=== PATIENT | female | born 1995 | race African-American/Black ===

== ENCOUNTER 2024-07-18 21:30 | Inpatient (IN) | payer MEDICAID ==
[~2024-07-18] VITALS: Ht 162.6 cm; Wt 86.5 kg
--- NOTE | 2024-07-18 23:32 | DVH ---
US OF THE LEFT BREAST INDICATION: abscess TECHNIQUE: Focused grayscale and color flow evaluation of the left breast and axilla. COMPARISON: None available. Findings and impression: Heterogeneous collection in the upper-outer quadrant of the left breast measuring approximately 7 cm in diameter. Surrounding subcutaneous edema. No internal blood flow. Differential diagnosis includes abscess as well as hematoma. Recommend further workup and close follow-up to resolution to exclude any associated neoplastic nicholas denise
--- NOTE | 2024-07-18 23:38 | ED.PDOC ---
History of Present Illness HPI Comments 28 y/o F presents with 3 month history of left breast pain and swelling. Patient endorses on history of abscess to her left-breast, which she had aspirated on June 22, 2024 by her PCP. She states on having, approximately, 80ml of fluid pulled from aspiration procedure and symptoms worsening since then. Next f/u appointment with PCP is next week. Reports being unable to tolerate symptoms any further. Denies any numbness, tingling, redness, fever, chills, or further associated symptoms at this time. 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 TOYS History Family History Family History: Unknown Social History Smoker: Non-Smoker Alcohol: Occasionally Drugs: Marijuana Lives In: Home All Other Systems: Reviewed and Negative (Comprehensive systems review obtained and negative except for what is stated in the HPI.) Physical Exam General Appearance: No Apparent Distress, Obese HEENT: Normal ENT Inspection, Pharynx Normal, TMs Normal Neck: Full Range of Motion, Non-Tender, Normal, Normal Inspection Respiratory: Chest Non-Tender, Lungs Clear, No Accessory Muscle Use, No Respiratory Distress, Normal Breath Sounds Cardiovascular: No Edema, No JVD, No Murmur, No Gallop, Normal Peripheral Pulses, Regular Rate/Rhythm Breast Exam: Deferred Gastrointestinal: No Organomegaly, Non Tender, No Pulsatile Mass, Normal Bowel Sounds, Soft Genitalia: Deferred Pelvic: Deferred Rectal: Deferred Extremities: No calf tenderness, Normal capillary refill, Normal inspection, Normal range of motion, Non-tender, No pedal edema Musculoskeletal : Location: Left Extremity Location: Other (breast) Apperance: Swelling, Tenderness, Other (firm to touch) Neurologic: Alert, cleaner furniture II-XII nml as Tested, No Motor Deficits, Normal Affect, Normal Mood, No Sensory Deficits Cerebellar Function: Normal Reflexes: Normal Skin: Dry, Normal Color, Warm Lymphatic: No Adenopathy Was a procedure done? Was a procedure done?: No Differential Dx Considerations may include: abscess, cellulitis, dermatitis, secondary infection s/p abscess aspiration X-Ray, Labs, Meds, VS Vital Signs Date Time Temp Pulse Resp B/P (MAP) Pulse Ox O2 Delivery O2 Flow Rate FiO2 07/19/24 00:15 107 19 134/78 07/19/24 00:05 101.0 109 18 134/78 (96) 100 101.0 07/18/24 23:30 112 20 100 Room Air 07/18/24 23:30 101.3 112 20 142/83 (102) 100 101.3 07/18/24 21:40 99.0 126 18 135/59 (84) 98 99.0 Lab Test 07/18/24 23:57 Range/Units White Blood Count 9.4 4.4-10.8 10^3/uL Red Blood Count 4.07 4.0-5.20 10^6/uL Hemoglobin 11.7 L 12.2-16.2 g/dL Hematocrit 35.4 L 36.0-46.0 % Mean Corpuscular Volume 87.0 80.0-100.0 fL Mean Corpuscular Hemoglobin 28.8 28.0-32.0 pg Mean Corpuscular Hemoglobin Concent 33.1 32.0-36.0 g/dL Red Cell Distribution Width 14.0 11.8-14.3 % Platelet Count 347 140-450 10^3/uL Mean Platelet Volume 8.3 6.9-10.8 fL Neutrophils (%) (Auto) 60.5 37.0-80.0 % Lymphocytes (%) (Auto) 27.5 10.0-50.0 % Monocytes (%) (Auto) 10.3 0.0-12.0 % Eosinophils (%) (Auto) 1.1 0.0-7.0 % Basophils (%) (Auto) 0.6 0.0-2.0 % Neutrophils # (Auto) 5.7 1.6-8.6 10 ^3/uL Lymphocytes # (Auto) 2.6 0.4-5.4 10 ^3/uL Monocytes # (Auto) 1.0 0-1.3 10 ^3/uL Eosinophils # (Auto) 0.1 0-0.8 10 ^3/uL Basophils # (Auto) 0.1 0-0.2 10 ^3/uL Nucleated Red Blood Cells 0.1 % Sodium Level 132 L 136-145 mmol/L Potassium Level 3.6 3.5-5.1 mmol/L Chloride Level 98 98-107 mmol/L Carbon Dioxide Level 23 20-31 mmol/L Anion Gap 11 5-15 Blood Urea Nitrogen < 5 L 9-23 mg/dL Creatinine 0.86 0.550-1.02 mg/dL Glomerular Filtration Rate Calc 94 >90 mL/min BUN/Creatinine Ratio 5.8 L 10.0-20.0 Serum Glucose 356 H 74-106 mg/dL Lactic Acid Level 3.1 *H 0.4-2.0 mmol/L Calcium Level 9.5 8.7-10.4 mg/dL Total Bilirubin 0.8 0.2-1.0 mg/dL Aspartate Amino Transferase (AST) 11 L 13-40 U/L Alanine Aminotransferase (ALT) 14 7-40 U/L Alkaline Phosphatase 92 46-116 U/L Total Protein 8.0 5.7-8.2 g/dL Albumin 4.8 3.2-4.8 g/dL Current Medications Medications (Trade) Dose Ordered Sig/Costa Route Start Time Stop Time Status Last Admin Sodium Chloride 1,000 ml @ 1,000 mls/hr Q1H ONCE IV 07/18/24 23:45 07/19/24 00:44 DC 07/18/24 23:58 Piperacillin Sod/ Tazobactam Sod 100 ml @ 100 mls/hr ONCE ONCE IV 07/18/24 23:45 07/19/24 00:44 DC 07/18/24 23:58 Hydromorphone HCl (Dilaudid Injection) 0.5 mg ONCE ONCE IV 07/19/24 00:15 07/19/24 00:16 DC 07/19/24 00:15 Ondansetron HCl (Zofran) 4 mg ONCE ONCE IV 07/19/24 00:15 07/19/24 00:16 DC 07/19/24 00:[address] [address] Ph: [phone] DIAGNOSTIC IMAGING Diagnostic Imaging Report : [id number] Signed PATIENT: ANDREA POTTS ACCT: [id number] UNIT: [id number] : 1995 LOC: ER ROOM / BED: / AGE / SEX: 28 / F ADM STATUS: REG ER SERVICE 46 ORDERING PHYSICIAN: MEKHI PIERCE PROCEDURE(s): LBRST - L BREAST ULTRASOUND REASON: abscess ORDER NUMBER(s): [id number], ACCESSION NUMBER(s): [id number] US OF THE LEFT BREAST INDICATION: abscess TECHNIQUE: Focused grayscale and color flow evaluation of the left breast and axilla. COMPARISON: None available. Findings and impression: Heterogeneous collection in the upper-outer quadrant of the left breast measuring approximately 7 cm in diameter. Surrounding subcutaneous edema. No internal blood flow. Differential diagnosis includes abscess as well as hematoma. Recommend further workup and close follow-up to resolution to exclude any associated neoplastic lesion. ATED BY: RORY ALVA MD DICTATED DATE/TIME: 07/18/242328 SIGNED BY: RORY ALVA MD SIGNED DATE/TIME: 07/18/242328 CC: X-Ray, Labs, Meds, VS Comment Imaging: X-rays and CT scans were reviewed and interpreted by this provider, imaging shows no fractures and no pathological disease. Pending radiology review. Ultrasound of the left breast shows large abscess Laboratory: Labs reviewed and interpreted by this provider. Patient has prior medical visits reviewed. Med reconciliation performed Vital signs reviewed Patient's she was signs of sepsis. Elevated lactic acid. Patient will be admitted for septicemia and abscess of the last breast. Patient was started on vancomycin and Zosyn Recommend surgical consult in the morning Time of 1ST Reevaluation: 22:15 Reevaluation 1ST: Unchanged Patient Education/Counseling: Diagnosis, Treatment, Need For Follow Up Family Education/Counseling: No Family Present Departure 1 Departure Time of Disposition: 00:59 Impression: Primary Impression: Abscess Additional Impression: Elevated lactic acid level Disposition: ADMITTED INPATIENT Condition: Stable Critical Care Note Critical Care Time?: No Stability Stability form required: No Heart Score Heart Score: Heart Score Response (Comments) Value History N/A 0 EKG N/A 0 Age N/A 0 Risk Factors N/A 0 Troponin N/A 0 Total 0 I personally scribed for MEKHI PIERCE ([email or web address]) on 07/18/24 at 23:38. Electronically submitted by Dayton [email or web address]). I personally scribed for MEKHI PIERCE ([email or web address]) on 07/18/24 at 23:41. Electronically submitted by Dayton Rooney [email or web address]). MEKHI PIERCE July 18, 2024 23:38
[2024-07-18] MEDS: PIPERACILLIN-TAZOB 3.375GM 100 ML IV ONE (23:58)
[2024-07-18] MEDS: SODIUM CHLORIDE 0.9% 1,000 ML IV ONE (23:58)
[2024-07-19] VITALS (9 sets, daily range): BP systolic 109–123; BP diastolic 55–77; PULSE 70–104; RESP 12–18; TEMP 98.4–100.4; O2SAT 98–100
[2024-07-19] MEDS: ONDANSETRON HCL 4 MG/2 ML VIAL IV ONE (00:14)
[2024-07-19] MEDS: HYDROmorphone HCL 2 MG/ML VL/or syr IV ONE (00:15)
[2024-07-19 00:23] LABS: Basophils # (auto) 0.1 10 ^3/uL (0-0.2); Basophils % (auto) 0.6 % (0.0-2.0); Eosinophils # (auto) 0.1 10 ^3/uL (0-0.8); Eosinophils % (auto) 1.1 % (0.0-7.0); Hematocrit 35.4 % (36.0-46.0); Hemoglobin 11.7 g/dL (12.2-16.2); Lymphocytes # (auto) 2.6 10 ^3/uL (0.4-5.4); Lymphocytes % (auto) 27.5 % (10.0-50.0); Mean Corpuscular Hemoglobin 28.8 pg (28.0-32.0); Mean Corpuscular Hgb Conc. 33.1 g/dL (32.0-36.0); Monocytes % (auto) 10.3 % (0.0-12.0); Neutrophils # (auto) 5.7 10 ^3/uL (1.6-8.6); Neutrophils % (auto) 60.5 % (37.0-80.0); Nucleated Red Blood Cells % 0.1 %; Platelet Count (auto) 347 10^3/uL (140-450); Red Blood Cells 4.07 10^6/uL (4.0-5.20); White Blood Cell 9.4 10^3/uL (4.4-10.8)
[2024-07-19 00:27] LABS: Alanine Aminotransferase 14 U/L (7-40); Albumin 4.8 g/dL (3.2-4.8); Alkaline Phosphatase 92 U/L (46-116); Anion Gap 11 (5-15); Calcium 9.5 mg/dL (8.7-10.4); Carbon Dioxide 23 mmol/L (20-31); Chloride 98 mmol/L (98-107); Potassium 3.6 mmol/L (3.5-5.1)
[2024-07-19 00:28] LABS: Bilirubin, Total 0.8 mg/dL (0.2-1.0)
[2024-07-19 00:29] LABS: Lactic Acid w/Reflex 3.1 mmol/L (0.4-2.0)
[2024-07-19 00:30] LABS: Aspartate Aminotransferase 11 U/L (13-40); BUN/Creatinine Ratio 5.8 (10.0-20.0); Blood Urea Nitrogen < 5 mg/dL (9-23); Glucose 356 mg/dL (74-106); Sodium 132 mmol/L (136-145)
[2024-07-19] MEDS: VANCOMYCIN 1GM/200ML PM 200 ML IV ONE (00:56)
[2024-07-19] MEDS: SODIUM CHLORIDE 0.9% 1,000 ML IV ONE (01:00)
[2024-07-19] MEDS ORDERED: VANCOMYCIN PER PHARMACY 0 MG IV SCH (02:00)
[2024-07-19] MEDS: SODIUM CHLORIDE 0.9% 1,000 ML IV SCH (02:10)
[2024-07-19 02:51] LABS: Urine Bacteria FEW /hpf (None Seen); Urine Blood 3+ /uL (Negative); Urine Clarity Clear (Clear); Urine Color Colorless (Yellow); Urine Protein, UAD TRACE (Negative); Urine Specific Gravity 1.019 (1.001-1.035); Urine Squamous Epithelial Cell FEW /hpf (<5); Urine Urobilinogen Normal (Negative); Urine WBC 2 /HPF (0-5); Urine pH 5.5 (5.0-9.0)
--- NOTE | 2024-07-19 04:29 | DVHHP2 ---
History of Present Illness Reason for Visit: breast abcess History of Present Illness 28-year-old female presents with a 3-month history of left breast pain and swelling, progressively worsening over the past few weeks. She reports that symptoms began after piercing her nipples, which she associates with the onset of recurrent issues. On June 22, 2024, her PCP aspirated approximately 80 mL of purulent fluid from the area. Despite initial improvement, she now reports increased tenderness and swelling, redness localized to the lower quadrants of the breast, and yellowish discharge near the nipple. She denies numbness, tingling, fevers, chills, or systemic symptoms. Her follow-up with PCP is scheduled for next week, but she presents today due to worsening symptoms and inability to tolerate the discomfort. 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 Differential includes abscess vs. hematoma. Further workup recommended to exclude neoplastic lesion. Review of Systems Review of Systems see HPI Allergies: Coded Allergies: NO KNOWN ALLERGIES (Unverified , 03/21/14) Medications Current Medications Medications Dose Ordered Sig/Costa Route Start Time Stop Time Status Last Admin Dose Admin Sodium Chloride 1,000 ml @ 100 mls/hr Q10H IV 07/19/24 02:00 07/19/24 02:10 100 MLS/HR Acetaminophen 650 mg Q6HP PRN PO 07/19/24 02:00 Enoxaparin Sodium 40 mg DAILY SC 07/19/24 10:00 Piperacillin Sod/ Tazobactam Sod 100 ml @ 25 mls/hr Q6HR IV 07/19/24 06:00 UNV Vancomycin HCl 0 ml @ 0 mls/hr UD IV 07/19/24 02:00 UNV Exam Vital Signs Vital Signs Date Time Temp Pulse Resp B/P (MAP) Pulse Ox O2 Delivery O2 Flow Rate FiO2 07/19/24 03:43 99.0 97 21 109/68 (82) 97 99.0 07/19/24 00:05 Room Air* 0 21 Exam Left breast with erythema and tenderness localized to the lower quadrants, visible nipple discharge. General Appearance: Alert, Oriented X3 HEENT: Atraumatic, PERRLA Respiratory: Clear to auscultation Cardiovascular: Regular rate, Normal S1 Abdominal: Normal bowel sounds, Soft Extremities: No clubbing, No cyanosis Skin: No rashes, No breakdown Neuro: Normal gait, Normal speech Psych/Mental Status: Mental status NL Labs/Xrays Labs Test 07/19/24 02:36 07/19/24 01:51 07/18/24 23:57 Range/Units Urine Color Colorless Yellow Urine Clarity Clear Clear Urine pH 5.5 5.0-9.0 Urine Specific [place] 1.019 1.001-1.035 Urine Protein Trace H Negative Urine Ketones Trace Negative Urine Blood 3+ H Negative /uL Urine Nitrite Negative Negative Urine Bilirubin Negative Negative Urine Urobilinogen Normal Negative mg/dL Urine Leukocyte Esterase Negative Negative /uL Urine RBC 213 0 - 4 /hpf Urine Microscopic WBC 2 0-5 /HPF Urine Squamous Epithelial Cells Few <5 /hpf Urine Bacteria Few H None Seen /hpf Urine Glucose 4+ H Normal mg/dL Lactic Acid Level 1.2 0.4-2.0 mmol/L White Blood Count 9.4 4.4-10.8 10^3/uL Red Blood Count 4.07 4.0-5.20 10^6/uL Hemoglobin 11.7 L 12.2-16.2 g/dL Hematocrit 35.4 L 36.0-46.0 % Mean Corpuscular Volume 87.0 80.0-100.0 fL Mean Corpuscular Hemoglobin 28.8 28.0-32.0 pg Mean Corpuscular Hemoglobin Concent 33.1 32.0-36.0 g/dL Red Cell Distribution Width 14.0 11.8-14.3 % Platelet Count 347 140-450 10^3/uL Mean Platelet Volume 8.3 6.9-10.8 fL Neutrophils (%) (Auto) 60.5 37.0-80.0 % Lymphocytes (%) (Auto) 27.5 10.0-50.0 % Monocytes (%) (Auto) 10.3 0.0-12.0 % Eosinophils (%) (Auto) 1.1 0.0-7.0 % Basophils (%) (Auto) 0.6 0.0-2.0 % Neutrophils # (Auto) 5.7 1.6-8.6 10 ^3/uL Lymphocytes # (Auto) 2.6 0.4-5.4 10 ^3/uL Monocytes # (Auto) 1.0 0-1.3 10 ^3/uL Eosinophils # (Auto) 0.1 0-0.8 10 ^3/uL Basophils # (Auto) 0.1 0-0.2 10 ^3/uL Nucleated Red Blood Cells 0.1 % Sodium Level 132 L 136-145 mmol/L Potassium Level 3.6 3.5-5.1 mmol/L Chloride Level 98 98-107 mmol/L Carbon Dioxide Level 23 20-31 mmol/L Anion Gap 11 5-15 Blood Urea Nitrogen < 5 L 9-23 mg/dL Creatinine 0.86 0.550-1.02 mg/dL Glomerular Filtration Rate Calc 94 >90 mL/min BUN/Creatinine Ratio 5.8 L 10.0-20.0 Serum Glucose 356 H 74-106 mg/dL Calcium Level 9.5 8.7-10.4 mg/dL Total Bilirubin 0.8 0.2-1.0 mg/dL Aspartate Amino Transferase (AST) 11 L 13-40 U/L Alanine Aminotransferase (ALT) 14 7-40 U/L Alkaline Phosphatase 92 46-116 U/L Total Protein 8.0 5.7-8.2 g/dL Albumin 4.8 3.2-4.8 g/dL Assessment/Plan Assessment/Plan #Sepsis? #Recurrent left abcess #Mastitis Admit Regular diet Zosyn + Vancomycin IV fluids Need of drainage Pain medication Case discussed with Dr Cano Full code Plan discussed with: Patient, Other (rn) My Orders Orders - RUTHY JONES RESIDENT Procedure Category Date Status Time Admit ADMIT 07/19/24 Transmitted 01:58 Code Status CODE 07/19/24 Transmitted 01:58 Vital Signs [facility] 07/19/24 In Process 01:58 Review Orders With MAGY 07/19/24 In Process Adm. 01:58 Sodium Chloride 0.9% PHA 07/19/24 In Process 02:00 Acetaminophen Tablet PHA 07/19/24 In Process (Tylenol Tablet) 02:00 Notify Of Changes [facility] 07/19/24 In Process From Base 01:58 Advance Directive MAGY 07/19/24 In Process 01:58 Patient Condition ORDERS 07/19/24 Transmitted 01:58 Allergies MAGY 07/19/24 In Process 01:58 Enoxaparin Sodium PHA 07/19/24 In Process (Lovenox) 10:00 Piperacillin-Tazob PHA 07/19/24 Pending 3.375gm (Zosyn 3.375g 06:00 Vancomycin Per PHA 07/19/24 Pending Pharmacy 02:00 Wound Culture W/ Gs JOSSELINE 07/19/24 In Process 02:07 * Radiologist Consult CONS 07/19/24 Transmitted 02:07 Complete Blood Count LAB 07/19/24 Logged 04:05 Comprehensive LAB 07/19/24 Logged Metabolic Panel 04:05 Thyroid Stimulating LAB 07/19/24 Logged Hormone 04:05 Date of Service: July 19, 2024 Billing Provider: JESSICA CANO MD Common Visit Codes: [id number] INP/OBS CARE (HIGH) Secondary Visit Codes: [id number] CARE PLAN 30 MINUTES RUTHY JONES RESIDENT July 19, 2024 04:29
[2024-07-19] MEDS: PIPERACILLIN-TAZOB 3.375GM 100 ML IV SCH (06:00)
[2024-07-19 09:44] LABS: Basophils # (auto) 0 10 ^3/uL (0-0.2); Basophils % (auto) 0.4 % (0.0-2.0); Eosinophils # (auto) 0.1 10 ^3/uL (0-0.8); Eosinophils % (auto) 1.2 % (0.0-7.0); Hematocrit 31.9 % (36.0-46.0); Hemoglobin 10.6 g/dL (12.2-16.2); Lymphocytes # (auto) 1.5 10 ^3/uL (0.4-5.4); Lymphocytes % (auto) 19.9 % (10.0-50.0); Mean Corpuscular Hemoglobin 28.8 pg (28.0-32.0); Mean Corpuscular Hgb Conc. 33.3 g/dL (32.0-36.0); Mean Corpuscular Volume 86.6 fL (80.0-100.0); Monocytes # (auto) 0.7 10 ^3/uL (0-1.3); Neutrophils % (auto) 68.5 % (37.0-80.0); Platelet Count (auto) 283 10^3/uL (140-450); Red Blood Cells 3.68 10^6/uL (4.0-5.20); Red Cell Distribution Width 13.9 % (11.8-14.3); White Blood Cell 7.3 10^3/uL (4.4-10.8)
[2024-07-19 09:59] LABS: Alanine Aminotransferase 15 U/L (7-40); Albumin 3.7 g/dL (3.2-4.8); Alkaline Phosphatase 79 U/L (46-116); Anion Gap 6 (5-15); Aspartate Aminotransferase 14 U/L (13-40); BUN/Creatinine Ratio 6.4 (10.0-20.0); Calcium 8.8 mg/dL (8.7-10.4); Carbon Dioxide 24 mmol/L (20-31); Chloride 104 mmol/L (98-107); Total Protein 6.4 g/dL (5.7-8.2)
[2024-07-19 10:00] LABS: Blood Urea Nitrogen 5 mg/dL (9-23); Glucose 399 mg/dL (74-106); Sodium 134 mmol/L (136-145)
[2024-07-19] MEDS: ENOXAPARIN SOD 40 MG/0.4 ML SYRINGE SC SCH (10:03)
[2024-07-19] MEDS: ACETAMINOPHEN 325 MG TAB PO PRN (10:03)
[2024-07-19] MEDS: SODIUM CHLORIDE 0.9% 500 ML IV ONE (10:09)
[2024-07-19] MEDS: VANCOMYCIN 750mg/150ml 150 ML IV SCH (11:28)
--- NOTE | 2024-07-19 11:58 | DVHINCON2 ---
Date of service: July 19, 2024 History of Present Illness 23-year-old female complaining of two month history of painful left breast swelling. Patient had an aspiration by her primary care doctor placed on antibiotics but the swelling recurred. Past Medical History None Past Surgical History Three C-sections Family History: Patient reports no known family medical history. Family History Noncontributory Social History Reports marijuana use. Occasional alcohol use. Denies any IV drug use Allergies: Coded Allergies: NO KNOWN ALLERGIES (Unverified , 03/21/14) Current Medications Current Medications Medications (Trade) Dose Ordered Sig/Costa Route PRN Reason Start Time Stop Time Status Last Admin Sodium Chloride 1,000 ml @ 100 mls/hr Q10H IV 07/19/24 02:00 07/19/24 11:31 Acetaminophen (Tylenol Tablet) 650 mg Q6HP PRN PO PAIN SCALE 1-3 OR TEMP>100.4 07/19/24 02:00 07/19/24 10:03 Enoxaparin Sodium (Lovenox) 40 mg DAILY SC 07/19/24 10:00 07/19/24 10:03 Piperacillin Sod/ Tazobactam Sod 100 ml @ 25 mls/hr Q6HR IV 07/19/24 06:00 Vancomycin HCl 0 ml @ 0 mls/hr UD IV 07/19/24 02:00 Vancomycin HCl 150 ml @ 150 mls/hr Q8H IV 07/19/24 10:00 07/19/24 11:28 Vital Signs Vital Signs Date Time Temp Pulse Resp B/P (MAP) Pulse Ox O2 Delivery O2 Flow Rate FiO2 07/19/24 08:54 100.4 97 15 114/74 (87) 100 100.4 07/19/24 08:00 Room Air* 0 21 Physical Exam GEN: Age-appropriate female in no acute distress. Alert. HEENT: Normocephalic atraumatic. Moist mucous membranes. Anicteric sclerae. CV: RRR Respiratory: CTAB ABD: Soft. Nontender nondistended Breast. There is a significant diffuse induration of the left breast with tenderness to palpation. Left breast ultrasound: Heterogeneous collection in the upper outer quadrant of the left breast measuring approximately 7 cm in diameter with surrounding subcutaneous edema. Possible abscess versus hematoma. Labs/Diagnostic Data Labs Test 07/19/24 09:14 07/19/24 02:36 07/19/24 01:51 Range/Units White Blood Count 7.3 4.4-10.8 10^3/uL Red Blood Count 3.68 L 4.0-5.20 10^6/uL Hemoglobin 10.6 L 12.2-16.2 g/dL Hematocrit 31.9 L 36.0-46.0 % Mean Corpuscular Volume 86.6 80.0-100.0 fL Mean Corpuscular Hemoglobin 28.8 28.0-32.0 pg Mean Corpuscular Hemoglobin Concent 33.3 32.0-36.0 g/dL Red Cell Distribution Width 13.9 11.8-14.3 % Platelet Count 283 140-450 10^3/uL Mean Platelet Volume 8.4 6.9-10.8 fL Neutrophils (%) (Auto) 68.5 37.0-80.0 % Lymphocytes (%) (Auto) 19.9 10.0-50.0 % Monocytes (%) (Auto) 10.0 0.0-12.0 % Eosinophils (%) (Auto) 1.2 0.0-7.0 % Basophils (%) (Auto) 0.4 0.0-2.0 % Neutrophils # (Auto) 5.0 1.6-8.6 10 ^3/uL Lymphocytes # (Auto) 1.5 0.4-5.4 10 ^3/uL Monocytes # (Auto) 0.7 0-1.3 10 ^3/uL Eosinophils # (Auto) 0.1 0-0.8 10 ^3/uL Basophils # (Auto) 0 0-0.2 10 ^3/uL Nucleated Red Blood Cells 0.0 % Sodium Level 134 L 136-145 mmol/L Potassium Level 4.0 3.5-5.1 mmol/L Chloride Level 104 98-107 mmol/L Carbon Dioxide Level 24 20-31 mmol/L Anion Gap 6 5-15 Blood Urea Nitrogen 5 L 9-23 mg/dL Creatinine 0.78 0.550-1.02 mg/dL Glomerular Filtration Rate Calc 106 >90 mL/min BUN/Creatinine Ratio 6.4 L 10.0-20.0 Serum Glucose 399 H 74-106 mg/dL Calcium Level 8.8 8.7-10.4 mg/dL Total Bilirubin 1.0 0.2-1.0 mg/dL Aspartate Amino Transferase (AST) 14 13-40 U/L Alanine Aminotransferase (ALT) 15 7-40 U/L Alkaline Phosphatase 79 46-116 U/L Total Protein 6.4 5.7-8.2 g/dL Albumin 3.7 3.2-4.8 g/dL Thyroid Stimulating Hormone (TSH) 1.75 0.55-4.78 uIU/mL Urine Color Colorless Yellow Urine Clarity Clear Clear Urine pH 5.5 5.0-9.0 Urine Specific [place] 1.019 1.001-1.035 Urine Protein Trace H Negative Urine Ketones Trace Negative Urine Blood 3+ H Negative /uL Urine Nitrite Negative Negative Urine Bilirubin Negative Negative Urine Urobilinogen Normal Negative mg/dL Urine Leukocyte Esterase Negative Negative /uL Urine RBC 213 0 - 4 /hpf Urine Microscopic WBC 2 0-5 /HPF Urine Squamous Epithelial Cells Few <5 /hpf Urine Bacteria Few H None Seen /hpf Urine Glucose 4+ H Normal mg/dL Lactic Acid Level 1.2 0.4-2.0 mmol/L Assessment 1. Large left breast abscess Plan/Recommendation 1. We will request IR evaluation for possible percutaneous aspiration/drainage. Plan discussed with: Patient TIFFANIE HAMILTON MD July 19, 2024 11:58
[2024-07-19] MEDS: fentaNYL CITRATE 100 MCG/2 ML VL IV ONE (12:30)
[2024-07-19] MEDS: MIDAZOLAM HCL 2MG/2ML 2ml VIAL (1mg/ml) IV ONE (12:30)
[2024-07-19] MEDS: fentaNYL CITRATE 100 MCG/2 ML VL ONE (12:31)
[2024-07-19] MEDS: MIDAZOLAM HCL 2MG/2ML 2ml VIAL (1mg/ml) ONE (12:31)
[2024-07-19 12:47] LABS: Partial Thromboplastin Time 26.9 SEC (24.5-34.5); Prothrombin Time 10.6 sec (9.3-11.8)
--- NOTE | 2024-07-19 13:04 | DVHPNRES ---
Progress Note Date Seen: July 19, 2024 Resident Creating Document: NAOMY MOYA RESIDENT Medical Necessity Reason Pt with a Central, PICC or Fol: No Subjective Review of Systems Patient is a 28-year-old female with no significant past medical history presented to the ED with a chief complaint of left breast swelling for the last 2 months. Patient reported that in May she started to have swelling in his left breast with the associated pain, no currently, patient had nipple piercings done about 2 years ago. Patient reported that at the [facility] she got the breast abscess drained in the end of June and about 88 CC of fluid was removed and the patient was given ciprofloxacin. She reported no relief from the symptoms and her abscess kept getting bigger and the breast more painful following which she came to the ER for further evaluation. Patient reported feeling feverish at home but denied chills, shortness of breath, chest pain, abdominal pain, nausea or vomiting. Past medical history: None Past surgical history: 3 C sections Gynecological history: Patient has 3 live children, no current Social history: Patient drinks alcohol occasionally, smokes weed occasionally, denies any other drug usage No home medications Review of systems Patient seen and examined with the bedside Reported of left breast pain and tenderness Denied headache, chills, abdominal pain, dysuria Objective vital signs Vital Sign Date Time Temp Pulse Resp B/P (MAP) Pulse Ox O2 Delivery O2 Flow Rate FiO2 07/19/24 12:29 100.2 104 16 112/59 (76) 98 100.2 07/19/24 08:00 Room Air* 0 21 Total Intake and Output 07/18/24 07/18/24 07/19/24 15:00 23:00 07:00 Intake Total 2700 ml Balance 2700 ml medications Current Medications Medications Dose Ordered Sig/Costa Route Start Time Stop Time Status Last Admin Dose Admin Sodium Chloride 1,000 ml @ 100 mls/hr Q10H IV 07/19/24 02:00 07/19/24 11:31 100 MLS/HR Acetaminophen 650 mg Q6HP PRN PO 07/19/24 02:00 07/19/24 10:03 650 MG Piperacillin Sod/ Tazobactam Sod 100 ml @ 25 mls/hr Q6HR IV 07/19/24 06:00 Vancomycin HCl 0 ml @ 0 mls/hr UD IV 07/19/24 02:00 Vancomycin HCl 150 ml @ 150 mls/hr Q8H IV 07/19/24 10:00 07/19/24 11:28 150 MLS/HR Examination Gen - no pallor, no icterus, no cyanosis, no clubbing, no LAD, no edema . Skin - Patients skin is warm and dry. HEENT - normocephalic, atraumatic, dry mucous membranes. Neck - full ROM, no LAD, no JVD Pulmonary - B/L equal breath sounds, no crackles , no wheezing, no stridor. cardiovascular - Regular S1,S2 heard. no murmurs heard. GI - soft, nontender abdomen. no hepatospleenomegaly. Bowel sounds normoactive Breast examination- left breast enlarged with tenderness to palpation diffusely, induration on the left upper and the lower quadrant with erythema Neurological - Patient is A/O X 3 . Bilateral upper extremity strength 5/5, bilateral lower extremity strength 5/5, no facial droop, normal speech, no tremor, no sensory deficiets. laboratory and microbiology Laboratory Tests 07/19/24 09:14 Test 07/19/24 09:14 Range/Units Serum Glucose 399 H 74-106 mg/dL Problem List/Assessment/Plan Problem List/Assessment/Plan Sepsis likely due to left breast abscess Left breast abscess , recurrent - left breast ultrasound shows heterogeneous collection in the upper outer quadrant of the left breast measuring approximately 7 cm in diameter, surrounding subcutaneous edema and no internal blood flow - interventional consulted for drainage of the abscess - surgery consulted--> recommended drainage by IR - IV antibiotics vancomycin and Zosyn - IV fluids - pain management ?Diabetes mellitus - glucosuria and elevated serum blood glucose - HbA1c pending Goals of care discussed with the patient for over 25 minutes. Full code Plan discussed with Dr. Alford Plan discussed with: Patient My Orders My Orders Orders - NAOMY MOYA RESIDENT Procedure Category Date Status Time Ultra Guided Abcess US 07/19/24 Logged Drainage 12:25 Date of Service: July 19, 2024 Billing Provider: SUZIE ALFORD MD Common Visit Codes: [id number] INP/OBS CARE(HIGH) NAOMY MOYA RESIDENT July 19, 2024 13:04 SUZIE ALFORD MD July 20, 2024 12:43
[2024-07-19] MEDS ORDERED: MORPHINE SULFATE INJ 2 MG/ml SYRG IV PRN (13:45)
--- NOTE | 2024-07-19 14:13 | DVH ---
US ULTRA GUIDED ABCESS DRAINAGE, HISTORY: BREAST ABCESS PROCEDURE: An informed consent was obtained. The patient was placed supine on the bed. IV sedation wa s administered. The suspicious breast abscess was localized with ultrasound and the overlying skin pr epped with chlorhexidine which was allowed to dry and draped in the usual sterile fashion. Time out w as performed and infiltrated with 1% Xylocaine. With US guidance, a 8 Micronesian multipurpose pigtail ca theter was placed into the collection using trocar technique. Approximately 120 cc of thick purulent fluid was aspirated. The drain was sutured at the skin surface and connected to suction drainage. No immediate complication was identified. Post procedure catherogram was obtained. SEDATION: Dr. Hortensia Chaidez was personally responsible for the administration of moderate sedation during the procedure performed, including the use of an independent trained observer who had no other duties during the procedure. The drugs utilized were IV fentanyl and versed (see nursing log for details). The total time of supervision by the attending physician was approximately 30 minutes. FINDINGS: Limited US scan of through the left breast demonstrates a fluid collection in the subcutan eous tissue. Collection appears complex. Post procedure scan shows pigtail drain within the collectio n , which is decreased in size. IMPRESSION: US guided placement of 8 [place] citizen pigtail drain into a left breast abscess with 120 mL purulent fluid r emoved. PLAN: Routine tube care.
[2024-07-19] MEDS: HYDROcodone-ACET 5/325MG TAB PO PRN (16:53)
[2024-07-19] MEDS ORDERED: DEXTROSE (50%) 50ML SYRG IV PRN (19:30)
[2024-07-19] MEDS: InsuLIN REG 1unit/0.01ml Soln (100units/ml) SC SCH (21:22)
[2024-07-19] MEDS: ACCU-CHEK COMFORT CURVE STRIP VI SCH (21:22)
[2024-07-19] MEDS: LACTATED RINGER'S 1,000 ML IV ONE (21:27)
[2024-07-20] VITALS (7 sets, daily range): BP systolic 100–118; BP diastolic 64–72; PULSE 83–96; RESP 17–19; TEMP 97.5–98.4; O2SAT 99–100
[2024-07-20 07:04] LABS: Chloride 106 mmol/L (98-107); Sodium 141 mmol/L (136-145)
[2024-07-20 07:05] LABS: Anion Gap 10 (5-15); Calcium 8.8 mg/dL (8.7-10.4); Carbon Dioxide 25 mmol/L (20-31)
[2024-07-20 07:06] LABS: Basophils # (auto) 0 10 ^3/uL (0-0.2); Basophils % (auto) 0.3 % (0.0-2.0); Eosinophils # (auto) 0.3 10 ^3/uL (0-0.8); Eosinophils % (auto) 4.5 % (0.0-7.0); Hemoglobin 10.2 g/dL (12.2-16.2); Lymphocytes # (auto) 1.6 10 ^3/uL (0.4-5.4); Lymphocytes % (auto) 25.9 % (10.0-50.0); Mean Corpuscular Hemoglobin 29.1 pg (28.0-32.0); Mean Corpuscular Volume 85.5 fL (80.0-100.0); Monocytes # (auto) 0.6 10 ^3/uL (0-1.3); Monocytes % (auto) 9.3 % (0.0-12.0); Neutrophils # (auto) 3.8 10 ^3/uL (1.6-8.6); Nucleated Red Blood Cells % 0.1 %; Platelet Count (auto) 307 10^3/uL (140-450); Red Blood Cells 3.51 10^6/uL (4.0-5.20); Red Cell Distribution Width 14.2 % (11.8-14.3); White Blood Cell 6.4 10^3/uL (4.4-10.8)
[2024-07-20 07:12] LABS: Blood Urea Nitrogen < 5 mg/dL (9-23); Glucose 136 mg/dL (74-106); Potassium 3.4 mmol/L (3.5-5.1)
[2024-07-20 08:27] LABS: BUN/Creatinine Ratio 8.6 (10.0-20.0)
[2024-07-20] MEDS: LACTATED RINGER'S 500 ML IV ONE (09:06)
--- NOTE | 2024-07-20 10:24 | DVHPN2 ---
Progress Note - Dictate Date Seen: July 20, 2024 Medical Necessity Reason Pt with a Central, PICC or Fol: No Subjective E: left breast IR drainage feels better. vital signs Vital Sign Date Time Temp Pulse Resp B/P (MAP) Pulse Ox O2 Delivery O2 Flow Rate FiO2 07/20/24 09:00 98.4 87 18 112/64 (80) 100 98.4 07/19/24 20:00 Room Air* 0 21 Total Intake and Output 07/19/24 07/19/24 07/20/24 15:00 23:00 07:00 Intake Total 1420 ml 1250 ml 1050 ml Output Total 25 ml Balance 1420 ml 1225 ml 1050 ml medications Current Medications Medications Dose Ordered Sig/Costa Route Start Time Stop Time Status Last Admin Dose Admin Acetaminophen 650 mg Q6HP PRN PO 07/19/24 02:00 07/20/24 02:55 650 MG Piperacillin Sod/ Tazobactam Sod 100 ml @ 25 mls/hr Q6HR IV 07/19/24 06:00 07/20/24 05:25 25 MLS/HR Vancomycin HCl 0 ml @ 0 mls/hr UD IV 07/19/24 02:00 Vancomycin HCl 150 ml @ 150 mls/hr Q8H IV 07/19/24 10:00 07/20/24 08:50 150 MLS/HR Acetaminophen/ Hydrocodone Bitart 1 tab Q4HPRN PRN PO 07/19/24 13:45 07/19/24 16:53 1 TAB Morphine Sulfate 2 mg Q6HPRN PRN IV 07/19/24 13:45 Diagnostic Test (Pha) 1 strip IQ4HR 07/19/24 20:00 07/20/24 08:04 1 STRIP Insulin Human Regular IQ4HR SC 07/19/24 20:00 07/20/24 08:04 2 UNITS Dextrose 50 ml UD PRN IV 07/19/24 19:30 objective GEN: NAD LEFT BREAST: drain intact laboratory and microbiology Laboratory Tests 07/20/24 05:44 Test 07/20/24 05:44 Range/Units Serum Glucose 136 H 74-106 mg/dL Assessment/Plan A: 1. Large left breast abscess s/p IR drainage. P: 1. stable from surgery POV for DC with oral abx per hospitalist. Plan discussed with: Patient TIFFANIE HAMILTON MD July 20, 2024 10:24
[2024-07-20] MEDS: INSULIN LISPRO (HUMAN) 100 UNITS/ML ML SC SCH (16:35)
--- NOTE | 2024-07-20 20:52 | DVHPNRES ---
Progress Note Date Seen: July 20, 2024 Resident Creating Document: NAOMY MOYA RESIDENT Medical Necessity Reason Pt with a Central, PICC or Fol: No Subjective Review of Systems Patient seen and examined with the bedside Left breast with a draining catheter with serosanguineous fluid Pain improved Denies any other acute complaints Objective vital signs Vital Sign Date Time Temp Pulse Resp B/P (MAP) Pulse Ox O2 Delivery O2 Flow Rate FiO2 07/20/24 20:00 Room Air* 0 21 07/20/24 16:40 98.1 86 19 100/64 (76) 100 98.1 Total Intake and Output 07/19/24 07/19/24 07/20/24 15:00 23:00 07:00 Intake Total 1420 ml 1250 ml 1050 ml Output Total 25 ml Balance 1420 ml 1225 ml 1050 ml medications Current Medications Medications Dose Ordered Sig/Costa Route Start Time Stop Time Status Last Admin Dose Admin Acetaminophen 650 mg Q6HP PRN PO 07/19/24 02:00 07/20/24 02:55 650 MG Vancomycin HCl 0 ml @ 0 mls/hr UD IV 07/19/24 02:00 Acetaminophen/ Hydrocodone Bitart 1 tab Q4HPRN PRN PO 07/19/24 13:45 07/20/24 11:27 1 TAB Morphine Sulfate 2 mg Q6HPRN PRN IV 07/19/24 13:45 Diagnostic Test (Pha) 1 strip IQ4HR 07/19/24 20:00 07/20/24 19:53 1 STRIP Insulin Human Regular IQ4HR SC 07/19/24 20:00 07/20/24 19:55 4 UNITS Dextrose 50 ml UD PRN IV 07/19/24 19:30 Insulin Glargine 12 units HS SC 07/20/24 22:00 Insulin Human Lispro 4 units AC SC 07/20/24 17:00 07/20/24 16:35 4 UNITS Vancomycin HCl 150 ml @ 150 mls/hr Q6HR IV 07/21/24 00:00 Piperacillin Sod/ Tazobactam Sod 100 ml @ 25 mls/hr Q6H IV 07/21/24 01:00 Examination Gen - no pallor, no icterus, no cyanosis, no clubbing, no LAD, no edema . Skin - Patients skin is warm and dry. HEENT - normocephalic, atraumatic, dry mucous membranes. Neck - full ROM, no LAD, no JVD Pulmonary - B/L equal breath sounds, no crackles , no wheezing, no stridor. cardiovascular - Regular S1,S2 heard. no murmurs heard. GI - soft, nontender abdomen. no hepatospleenomegaly. Bowel sounds normoactive Breast examination- left breast enlarged with tenderness to palpation diffusely, induration on the left upper and the lower quadrant with erythema Neurological - Patient is A/O X 3 . Bilateral upper extremity strength 5/5, bilateral lower extremity strength 5/5, no facial droop, normal speech, no tremor, no sensory deficiets. laboratory and microbiology Laboratory Tests 07/20/24 05:44 Test 07/20/24 05:44 Range/Units Serum Glucose 136 H 74-106 mg/dL Microbiology Date/Time Source Procedure Growth Status 07/19/24 13:40 Aspirate Gram Stain - Final Resulted 07/19/24 13:40 Aspirate Body Fluid Culture - Preliminary Resulted 07/19/24 04:06 Breast Gram Stain - Final Resulted 07/19/24 04:06 Breast Wound Culture - Preliminary Resulted 07/18/24 23:57 Blood Blood Culture - Preliminary NO GROWTH AFTER 24 HOURS OF INCUBATION. Resulted Problem List/Assessment/Plan Problem List/Assessment/Plan Sepsis likely due to left breast abscess Left breast abscess , recurrent - left breast ultrasound shows heterogeneous collection in the upper outer quadrant of the left breast measuring approximately 7 cm in diameter, surrounding subcutaneous edema and no internal blood flow - interventional consulted for drainage of the abscess - surgery consulted--> recommended drainage by IR - IV antibiotics vancomycin and Zosyn - IV fluids - pain management Newly diagnosed Diabetes mellitus - glucosuria and elevated serum blood glucose - HbA1c 12.9% - started on insulin Lantus 12 units and insulin lispro 4 units ac Goals of care discussed with the patient for over 27 minutes. Full code Plan discussed with Dr. Alford Plan discussed with: Patient My Orders My Orders Orders - NAOMY MOYA RESIDENT Procedure Category Date Status Time Consistent DIET 07/20/24 Transmitted Carb(Ccho)Diabetes Lunch Insulin Lantus PHA 07/20/24 In Process (Glargine) (Lantus) 22:00 Insulin Lispro PHA 07/20/24 In Process (Human) (Humalog) 17:00 Potassium Er Tablet PHA 07/20/24 Verified (Klor-Con Tablet) 20:45 Date of Service: July 20, 2024 Billing Provider: SUZIE ALFORD MD Common Visit Codes: [id number] INP/OBS CARE(HIGH) NAOMY MOYA RESIDENT July 20, 2024 20:52 SUZIE ALFORD MD July 20, 2024 22:27
[2024-07-20] MEDS: POTASSIUM CHL 20 Meq TABLET PO ONE (21:04)
[2024-07-20] MEDS: ACCU-CHEK COMFORT CURVE STRIP VI SCH (21:31)
[2024-07-20] MEDS: INSULIN LANTUS (GLARGINE) 1 /0.01ml (100units/ml) SC SCH (21:33)
[2024-07-20] MEDS: VANCOMYCIN 750mg/150ml 150 ML IV SCH (23:50)
[2024-07-21] MEDS: PIPERACILLIN-TAZOB 3.375GM 100 ML IV SCH (00:53)
[2024-07-21 01:00] VITALS: BP 97/58; PULSE 72; RESP 18; TEMP 97.5; O2SAT 98
[2024-07-21 05:00] VITALS: BP 101/61; PULSE 80; RESP 18; TEMP 97.8; O2SAT 95
[2024-07-21 06:12] LABS: Basophils # (auto) 0 10 ^3/uL (0-0.2); Basophils % (auto) 0.5 % (0.0-2.0); Eosinophils # (auto) 0.3 10 ^3/uL (0-0.8); Eosinophils % (auto) 6.4 % (0.0-7.0); Hematocrit 30.2 % (36.0-46.0); Hemoglobin 10.3 g/dL (12.2-16.2); Lymphocytes # (auto) 1.4 10 ^3/uL (0.4-5.4); Lymphocytes % (auto) 28.5 % (10.0-50.0); Mean Corpuscular Hemoglobin 29.1 pg (28.0-32.0); Mean Corpuscular Hgb Conc. 34.1 g/dL (32.0-36.0); Mean Corpuscular Volume 85.4 fL (80.0-100.0); Monocytes # (auto) 0.5 10 ^3/uL (0-1.3); Neutrophils # (auto) 2.8 10 ^3/uL (1.6-8.6); Neutrophils % (auto) 55.6 % (37.0-80.0); Nucleated Red Blood Cells % 0.1 %; Platelet Count (auto) 314 10^3/uL (140-450); Red Blood Cells 3.54 10^6/uL (4.0-5.20); Red Cell Distribution Width 14.2 % (11.8-14.3); White Blood Cell 5.1 10^3/uL (4.4-10.8)
[2024-07-21 06:28] LABS: Anion Gap 9 (5-15); Carbon Dioxide 25 mmol/L (20-31); Chloride 105 mmol/L (98-107); Potassium 4.1 mmol/L (3.5-5.1); Sodium 139 mmol/L (136-145)
[2024-07-21 06:29] LABS: Calcium 9.2 mg/dL (8.7-10.4)
[2024-07-21 06:34] LABS: BUN/Creatinine Ratio 7.7 (10.0-20.0)
[2024-07-21 06:35] LABS: Blood Urea Nitrogen 5 mg/dL (9-23); Glucose 165 mg/dL (74-106)
[2024-07-21 09:00] VITALS: BP 95/57; PULSE 73; RESP 19; TEMP 98.1; O2SAT 96
--- NOTE | 2024-07-21 12:45 | MEDREC ---
[facility] ASP Intervention Section I [facility] ASP Intervention: Deescalate AB based on CS (PLEASE CONSIDER DEESCALATING ANTIBIOTICS BASED ON CULTURE RESULTS ) TRACY SWAN PHARMACIST July 21, 2024 12:45
[2024-07-21 13:00] VITALS: BP 106/63; PULSE 80; RESP 18; TEMP 97.9; O2SAT 100
[2024-07-21 16:34] VITALS: BP 118/75; PULSE 87; RESP 18; TEMP 97; O2SAT 98
[2024-07-21] MEDS ORDERED: LEVO750T40 PO (16:41)
[2024-07-21] MEDS ORDERED: GLUC-224 VI (16:41)
[2024-07-21] MEDS ORDERED: INSU100I54 SC (16:41)
[2024-07-21] MEDS ORDERED: ISOP70MI2 EX (16:41)
[2024-07-21] MEDS ORDERED: LANC-347 XX (16:41)
[2024-07-21] MEDS ORDERED: INSU100I74 SC (16:41)
[2024-07-21] MEDS ORDERED: BLOO-169 XX (16:41)
--- NOTE | 2024-07-21 16:42 | DVHDSRES ---
Discharge Summary Date of Admission Resident Creating Document: NAOMY MOYA RESIDENT July 19, 2024 at 01:58 Date of Discharge: July 21, 2024 Admitting Diagnosis #Sepsis? #Recurrent left abcess #Mastitis Labs/Diagnostic Data: Laboratory Results Test 07/21/24 10:58 07/21/24 10:36 07/21/24 05:09 07/19/24 13:40 Creatinine 0.70 mg/dL (0.550-1.02) Glomerular Filtration Rate Calc 121 mL/min (>90) Vancomycin Level Trough 11.5 ug/mL (5-10) POC Glucose 274 mg/dl (70-106) White Blood Count 5.1 10^3/uL (4.4-10.8) Red Blood Count 3.54 10^6/uL (4.0-5.20) Hemoglobin 10.3 g/dL (12.2-16.2) Hematocrit 30.2 % (36.0-46.0) Mean Corpuscular Volume 85.4 fL (80.0-100.0) Mean Corpuscular Hemoglobin 29.1 pg (28.0-32.0) Mean Corpuscular Hemoglobin Concent 34.1 g/dL (32.0-36.0) Red Cell Distribution Width 14.2 % (11.8-14.3) Platelet Count 314 10^3/uL (140-450) Mean Platelet Volume 8.3 fL (6.9-10.8) Neutrophils (%) (Auto) 55.6 % (37.0-80.0) Lymphocytes (%) (Auto) 28.5 % (10.0-50.0) Monocytes (%) (Auto) 9.0 % (0.0-12.0) Eosinophils (%) (Auto) 6.4 % (0.0-7.0) Basophils (%) (Auto) 0.5 % (0.0-2.0) Neutrophils # (Auto) 2.8 10 ^3/uL (1.6-8.6) Lymphocytes # (Auto) 1.4 10 ^3/uL (0.4-5.4) Monocytes # (Auto) 0.5 10 ^3/uL (0-1.3) Eosinophils # (Auto) 0.3 10 ^3/uL (0-0.8) Basophils # (Auto) 0 10 ^3/uL (0-0.2) Nucleated Red Blood Cells 0.1 % Sodium Level 139 mmol/L (136-145) Potassium Level 4.1 mmol/L (3.5-5.1) Chloride Level 105 mmol/L (98-107) Carbon Dioxide Level 25 mmol/L (20-31) Anion Gap 9 (5-15) Blood Urea Nitrogen 5 mg/dL (9-23) BUN/Creatinine Ratio 7.7 (10.0-20.0) Serum Glucose 165 mg/dL (74-106) Calcium Level 9.2 mg/dL (8.7-10.4) Test 07/19/24 12:16 07/19/24 09:14 07/19/24 02:36 07/19/24 01:51 Prothrombin Time 10.6 sec (9.3-11.8) Prothrombin Time INR 1.00 (0.9-1.15) Activated Partial Thromboplast Time 26.9 SEC (24.5-34.5) Hemoglobin A1c 12.9 % A1C (<5.7) Total Bilirubin 1.0 mg/dL (0.2-1.0) Aspartate Amino Transferase (AST) 14 U/L (13-40) Alanine Aminotransferase (ALT) 15 U/L (7-40) Alkaline Phosphatase 79 U/L (46-116) Total Protein 6.4 g/dL (5.7-8.2) Albumin 3.7 g/dL (3.2-4.8) Thyroid Stimulating Hormone (TSH) 1.75 uIU/mL (0.55-4.78) Urine Color Colorless (Yellow) Urine Clarity Clear (Clear) Urine pH 5.5 (5.0-9.0) Urine Specific [place] 1.019 (1.001-1.035) Urine Protein Trace (Negative) Urine Ketones Trace (Negative) Urine Blood 3+ /uL (Negative) Urine Nitrite Negative (Negative) Urine Bilirubin Negative (Negative) Urine Urobilinogen Normal mg/dL (Negative) Urine Leukocyte Esterase Negative /uL (Negative) Urine RBC 213 /hpf (0 - 4) Urine Microscopic WBC 2 /HPF (0-5) Urine Squamous Epithelial Cells Few /hpf (<5) Urine Bacteria Few /hpf (None Seen) Urine Glucose 4+ mg/dL (Normal) Lactic Acid Level 1.2 mmol/L (0.4-2.0) Other Laboratory Tests 07/21/24 10:58 07/21/24 05:09 Brief Hx & Hospital Course: HPI Patient is a 28-year-old female with no significant past medical history presented to the ED with a chief complaint of left breast swelling for the last 2 months. Patient reported that in May she started to have swelling in his left breast with the associated pain, no currently, patient had nipple piercings done about 2 years ago. Patient reported that at the [facility] she got the breast abscess drained in the end of June and about 88 CC of fluid was removed and the patient was given ciprofloxacin. She reported no relief from the symptoms and her abscess kept getting bigger and the breast more painful following which she came to the ER for further evaluation. Patient reported feeling feverish at home but denied chills, shortness of breath, chest pain, abdominal pain, nausea or vomiting. Past medical history: None Past surgical history: 3 C sections Gynecological history: Patient has 3 live children, no current Social history: Patient drinks alcohol occasionally, smokes weed occasionally, denies any other drug usage No home medications Brief hospital course Patient came in with a chief complaint of left breast swelling and breast ultrasound revealed a 7 cm left breast upper outer quadrant abscess following which Interventional Radiology and surgery were consulted. Patient underwent ultrasound-guided drainage of the best abscess with Interventional Radiology and a pigtail catheter was placed into the abscess with drainage of serosanguineous fluid. Patient initially was septic and was started on broad-spectrum antibiotics with the vancomycin and Zosyn. Cultures from the breast abscess showed growth of Staph aureus sensitive to multiple drugs and the patient was discharged home on levofloxacin 750 mg for 10 days with a pigtail catheter in the breast abscess. Patient was also diagnosed with diabetes mellitus in the hospital with a her HbA1c level being 12.9% following which he was started on insulin. Patient discharged in stable condition to home Discharge plan Medications: Levofloxacin 750 mg for 10 days, insulin Lantus 15 units at bedtime, insulin lispro 5 units + sliding scale before meals. Patient has been made an appointment in the discharge clinic on 07/27/2024 at 1:15 p.m. to assess the breast abscess drain and further management. Consults/Reason for consult Surgical consultation for left breast sepsis Interventional Radiology consultation for left breast abscess drainage Operations or Procedures US ULTRA GUIDED ABCESS DRAINAGE, HISTORY: BREAST ABCESS PROCEDURE: An informed consent was obtained. The patient was placed supine on the bed. IV sedation was administered. The suspicious breast abscess was localized with ultrasound and the overlying skin prepped with chlorhexidine which was allowed to dry and draped in the usual sterile fashion. Time out was performed and infiltrated with 1% Xylocaine. With US guidance, a 8 Amharic multipurpose pigtail catheter was placed into the collection using trocar technique. Approximately 120 cc of thick purulent fluid was aspirated. The drain was sutured at the skin surface and connected to suction drainage. No immediate complication was identified. Post procedure catherogram was obtained. SEDATION: Dr. Hortensia Charles was personally responsible for the administration of moderate sedation during the procedure performed, including the use of an independent trained observer who had no other duties during the procedure. The drugs utilized were IV fentanyl and versed (see nursing log for details). The total time of supervision by the attending physician was approximately 30 minutes. FINDINGS: Limited US scan of through the left breast demonstrates a fluid collection in the subcutaneous tissue. Collection appears complex. Post procedure scan shows pigtail drain within the collection , which is decreased in size. IMPRESSION: US guided placement of 8 salvadorean pigtail drain into a left breast abscess with 120 mL purulent fluid removed. PLAN: Routine tube care. ATED BY: SARBJIT CHARLES MD DICTATED DATE/TIME: 07/19/24 1410 SIGNED BY: SARBJIT CHARLES MD SIGNED DATE/TIME: 07/19/24 1410 Condition at Discharge: Good Final Diagnosis/Problems List Sepsis likely due to left breast abscess Left breast abscess , recurrent Newly diagnosed Diabetes mellitus Discharge Disposition: Home Discharge Instruct/Medications Diet: Consistent carbohydrate Activity: No Restrictions, As Tolerated Follow Up/Referral: Follow up in the discharge clinic on friday07/27/2024 at 1:15pm Medications: as per EMR Discharge Statement: "Patient was advised to return to the ER or call 911 if any headaches, dizziness, shortness of breath, chest pain, abdominal pain, bleeding, fevers, or worsening of medical condition. Patient was counseled about treatment plan, medications, possible side effects, patientverbalized understanding. All questions were answered to the best of my ability. This discharge took greater then 30 minutes in planning, reviewing documentation, counseling the patient, and discussing with other team members." ASSESSMENT ASSESSMENT Assessment Sepsis likely due to left breast abscess Left breast abscess , recurrent Newly diagnosed Diabetes mellitus Date of Service: July 21, 2024 Billing Provider: PETER WADE MD Common Visit Codes: [id number] DISCH DAY >30min NAOMY MOYA RESIDENT July 21, 2024 16:41 PETER WADE MD July 21, 2024 22:40
[2024-07-22] MEDS ORDERED: LANC-347 XX (12:15)
[2024-07-22] MEDS ORDERED: BLOO-169 XX (12:15)
[2024-07-22] MEDS ORDERED: LEVO750T40 PO (12:15)
[2024-07-22] MEDS ORDERED: INSU100I54 SC (12:15)
[2024-07-22] MEDS ORDERED: ISOP70MI2 EX (12:15)
[2024-07-22] MEDS ORDERED: INSU100I74 SC (12:15)
[2024-07-22] MEDS ORDERED: GLUC-224 VI (12:15)
== END 2024-07-21 18:46 | disposition home or self-care (01) | DRG 385 ==
LOC: ER 21:30 → OVERFLOW 07-19 01:58 → EAST 07-19 03:54
PROVIDERS: ADMIT Internal Medicine; ATTEND Internal Medicine
PROC: 0H9U30Z Drainage of Left Breast with Drainage Device, Percutaneous Approach (ICD-10-PCS; principal; 2024-07-19)
DX: N61.1 Abscess of the breast and nipple (principal); E87.20 Acidosis, unspecified; E11.9 Type 2 diabetes mellitus without complications
CPT/HCPCS: 36415; 75989; 76642; 80048; 80053; 80202; 81001; 82565; 82962; 83036; 83605; 84443; 85025; 85610; 85730; 87040; 87077; 87186; 87205; 96365; C1729; G0378; J1815; J2250; J2405; J2543

== ENCOUNTER 2024-08-01 16:48 | Emergency (ER) | payer MEDICAID ==
[~2024-08-01] VITALS: Ht 162.6 cm; Wt 86.2 kg
[~2024-08-01 16:48] MED LIST: BLOO-169 XX; GLUC-224 VI; INSU100I54 SC; INSU100I74 SC; ISOP70MI2 EX; LANC-347 XX; LEVO750T40 PO
--- NOTE | 2024-08-01 18:10 | ED.PDOC ---
History of Present Illness(SKN HPI Comments 28 FEMALE PRESENTS AN ED FOR WOUND CHECK LEFT BREAST INFECTION STATES SHE WAS SEEN HERE 10 DAYS AGO FINISHED ABX. DENIES FEVERS, CHILLS, NAUSEA OR VOMITING. IT IS TOOK THE ANTIBIOTICS PRESCRIBED COMPLETE ENTIRE COURSE Chief Complaint: Wound Check Time Seen by MD: 18:06 Primary Care Provider: DARSHAN History of Present Illness: Nurses Notes, Medications, Allergies Allergies: Coded Allergies: NO KNOWN ALLERGIES (Unverified , 03/21/14) Home Meds Active Scripts Levofloxacin Hemihydrate (LEVOFLOXACIN) 750 Mg Tab, 1 TAB PO DAILY for 5 Days, #5 TAB Prov:KATHIE JASSO 08/01/24 Isopropyl Alcohol (Isopropyl Alcohol Wipes) 70 % Mis, 70 % EX ACHS for 30 Days, #120 MISC 0 Refills Prov:NAOMY MOYA 07/22/24 Glucose Blood (EASY TOUCH GLUCOSE TEST S) Strips Misty, 1 EA ACHS for 30 Days, #120 MISC 0 Refills Prov:NAOMY MOYA 07/22/24 Lancets (Freestyle Lancets) Lancets Mis, EA XX ACHS, #120 0 Refills Check blood glucose before each meal and at bedtime Prov:NAOMY MOYA 07/22/24 Blood Glucose Monitoring Suppl (EASY TOUCH GLUCOSE MONITO) Monitor Kit, EA XX AC HS, #1 0 Refills Check blood glucose before each meal and at bedtime Prov:NAOMY MOYA 07/22/24 Insulin Lispro (Insulin Lispro Kwikpen) 100 Unit/Ml Inj, 5 UNIT SC AC for 30 Days, #7 INJ Check blood sugars 20 minutes before each meal If the blood sugar is less than 70 do not take any insulin and have an orange juice 70- 150 take the 5 units 151-200 add 1 unit 201-250 add 2 units 251-300 add 3 units 301-350 add 4 units Greater than 351 add 5 units. Prov:NAOMY MOYA 07/22/24 Insulin Glargine (Insulin Glargine Solostar) 100 Unit/Ml Inj, 15 UNIT SC HS for 30 Days, #5 INJ Prov:NAOMY MOYA 07/22/24 Levofloxacin Hemihydrate (LEVOFLOXACIN) 750 Mg Tab, 750 MG PO DAILY for 14 Days, #14 TAB 0 Refills Prov:MARTHA MOYADANIELJEFFREY RESIDENT 07/22/24 Mode of Arrival: Ambulatory Past Medical History PAST MEDICAL HISTORY: Denies Surgical History: QUAD STAYER History: No Pertinent QUAD STAYER History Family History Family History: Reviewed,noncontributory to illness, Unknown Social History Smoker: Non-Smoker Alcohol: Occasionally Drugs: Marijuana Lives In: Home Constitutional: denies: chills, diaphoresis, fatigue, fever, malaise, sweats, weakness, others EENTM: denies: blurred vision, double vision, ear bleeding, ear discharge, ear drainage, ear pain, ear ringing, eye pain, eye redness, hearing loss, mouth pain, mouth swelling, nasal discharge, nose bleeding, nose congestion, nose pain, photophobia, tearing, throat pain, throat swelling, voice changes, others Respiratory: denies: cough, hemoptysis, orthopnea, SOB at rest, shortness of breath, SOB with excertion, stridor, wheezing, others Cardiovascular: denies: chest pain, dizzy spells, diaphoresis, Dyspnea on exertion, edema, irregular heart beat, left arm pain, lightheadedness, palpitations, PND, syncope, others Gastrointestinal: denies: abdomen distended, abdominal pain, blood streaked bowels, constipated, diarrhea, dysphagia, difficulty swallowing, hematemesis, melena, nausea, poor appetite, poor fluid intake, rectal bleeding, rectal pain, vomiting, others Genitourinary: denies: abnormal vagina bleeding, burning, dyspareunia, dysuria, flank pain, frequency, hematuria, incontinence, pain, , vagina discharge, urgency, others Neurological: denies: dizziness, fainting, headache, left sided numbness, left sided weakness, numbness, paresthesia, pre-existing deficit, right sided numbness, right sided weakness, seizure, speech problems, tingling, tremors, weakness, others Musculoskeletal: denies: back pain, gout, joint pain, joint swelling, muscle pain, muscle stiffness, neck pain, others Integumetry: denies: bruises, change in color, change in hair/nails, dryness, laceration, lesions, lumps, rash, wounds, others Allergic/Immunocompromised: denies: Difficulty Healing, Frequent Infections, Hives, Itching, others Hematologic/Lymphatic: denies: anemia, blood clots, easy bleeding, easy bruising, swollen glands, others Endocrine: denies: excessive hunger, excessive sweating, excessive thirst, excessive urination, flushing, intolerance to cold, intolerance to heat, unexplained weight gain, unexplained weight loss, others Psychiatric: denies: anxiety, bipolar disorder, depression, hopeless, panic disorder, schizophrenia, sleepless, suicidal, others Physical Exam General Appearance: No Apparent Distress, Normal HEENT: Pharynx Normal Neck: Full Range of Motion, Non-Tender Respiratory: Lungs Clear, No Respiratory Distress, Normal Breath Sounds Cardiovascular: No Murmur, Normal Peripheral Pulses, Regular Rate/Rhythm Breast Exam: Deferred Gastrointestinal: Non Tender, Soft Genitalia: Deferred Pelvic: Deferred Rectal: Deferred Extremities: Normal capillary refill, Normal inspection, Normal range of motion, Non-tender, No pedal edema Musculoskeletal : Apperance: Normal Neurologic: Alert, college scouting coordinator II-XII nml as Tested, No Motor Deficits, Normal Affect, Normal Mood, No Sensory Deficits Cerebellar Function: Normal Reflexes: Normal Skin: Dry, Normal Color, Warm, Other (WOUND DRAIN IN PLACE LEFT BREAST NO NOTED ERYTHEMA OR DRAINAGE) Lymphatic: No Adenopathy Was a procedure done? Was a procedure done?: No Differential Diagnosis (INTG) Differential Diagnosis: Cellulitis Differential Diagnosis: Abscess, Impetigo, Tinea, Urticaria X-Ray, Labs, Meds, VS Vital Signs Date Time Temp Pulse Resp B/P (MAP) Pulse Ox O2 Delivery O2 Flow Rate FiO2 08/01/24 17:00 97.7 69 16 122/72 (89) 100 97.7 Lab Test 08/01/24 16:59 Range/Units POC Glucose 180 H 70-106 mg/dl X-Ray, Labs, Meds, VS Comment WE WILL SCRIPT 5 DAY DOSE OF LEVAQUIN TILL PATIENT FOLLOWS UP IN CLINIC FOR REMOVAL OF DRAIN. TAKE MEDICATIONS PRESCRIBED SIDE EFFECTS DISCUSSED. RETURN PRECAUTIONS GIVEN PATIENT INDICATES UNDERSTANDING AND AGREES WITH DISCHARGE PLAN OF CARE PER Time of 1ST Reevaluation: 18:09 Reevaluation 1ST: Unchanged Time of 2ND Reevaluation: 19:12 Reevaluation 2ND: Improved Patient Education/Counseling: Diagnosis, Treatment, Prognosis, Need For Follow Up Family Education/Counseling: No Family Present Departure 1 Departure Time of Disposition: 19:10 Impression: Primary Impression: Abscess Disposition: 01 HOME / SELF CARE / HOMELESS Condition: Stable e-Prescriptions Levofloxacin Hemihydrate (LEVOFLOXACIN) 750 Mg Tab 1 TAB PO DAILY for 5 Days, #5 TAB Prov: KATHIE JASSO 08/01/24 Discharged With: Self Critical Care Note Critical Care Time?: No Stability Stability form required: No KATHIE JASSO Aug 01, 2024 18:10
[2024-08-01 19:10] VITALS: BP 132/67; PULSE 72; RESP 18; TEMP 97; O2SAT 94
[2024-08-01] MEDS ORDERED: LEVO750T40 PO (19:10)
== END 2024-08-01 19:22 | disposition home or self-care (01) ==
LOC: ER 16:48
DX: N61.1 Abscess of the breast and nipple (principal); F12.90 Cannabis use, unspecified, uncomplicated; Z79.899 Other long term (current) drug therapy
CPT/HCPCS: 82947; 82962